=== PATIENT | female | born 1990 | race Caucasian/White ===

== ENCOUNTER 2017-05-04 09:37 | Inpatient (IN) | payer MEDICAID ==
[2017-05-04] MEDS ORDERED: RINGERS SOLUTION,LACTATED 1,000 ML IV PRN (10:47)
[2017-05-04] MEDS ORDERED: RINGERS SOLUTION,LACTATED 300 ML IV ONE (10:47)
[2017-05-04] MEDS ORDERED: MISOPROSTOL 0.1 MG TABLET PV ONE (10:49)
[2017-05-04] MEDS ORDERED: MISOPROSTOL 0.1 MG TABLET ONE ×4 (11:01→20:16)
[2017-05-04 11:11] LABS: ABSOLUTE LYMPHOCYTES (AUTO) 1.7 10^3/uL (0.5-4.7); ABSOLUTE MONOCYTES (AUTO) 0.4 10^3/uL (0.1-1.4); ABSOLUTE NEUT (AUTO) 8.5 10^3/uL (1.7-8.2); BASOPHILS % (AUTO) 0.3 % (0-2); EOSINOPHILS % (AUTO) 0.4 % (0-6); HEMATOCRIT 35.6 % (36.0-47.0); HGB HCT DIFFERENCE 0.4; LYMPHOCYTES % (AUTO) 16.1 % (13-45); MEAN CORPUSCULAR HEMOGLOBIN 29.5 pg (27.0-33.4); MEAN CORPUSCULAR HGB CONC 33.6 g/dL (32.0-36.0); MEAN CORPUSCULAR VOLUME 88 fl (80-97); MONOCYTES % (AUTO) 3.9 % (3-13); RED BLOOD COUNT 4.06 10^6/uL (3.72-5.28); RED CELL DISTRIBUTION WIDTH 14.8 % (11.5-14.0); SEGMENTED NEUTROPHILS % (AUTO) 79.3 % (42-78); WHITE BLOOD COUNT 10.7 10^3/uL (4.0-10.5)
[2017-05-04 11:12] LABS: APPEARANCE,URINE SLIGHTLY-CLOUDY; BILIRUBIN,URINE NEGATIVE (NEGATIVE); GLUCOSE, URINE NEGATIVE (NEGATIVE); KETONES,URINE NEGATIVE (NEGATIVE); LEUKOCYTE ESTERASE,URINE NEGATIVE (NEGATIVE); NITRITE,URINE NEGATIVE (NEGATIVE); PROTEIN,URINE 100 mg/dL (NEGATIVE); URINE SPECIFIC GRAVITY 1.012; UROBILINOGEN,URINE NEGATIVE mg/dL (<2.0)
[2017-05-04 11:28] LABS: URINE BARBITURATES SCREEN NEGATIVE; URINE METHADONE SCREEN NEGATIVE; URINE OPIATES LOW NEGATIVE; URINE PHENCYCLIDINE SCREEN NEGATIVE
[2017-05-04 12:12] LABS: THYROID STIMULATING HORMONE 1.28 uIU/mL (0.47-4.68)
--- NOTE | 2017-05-04 15:20 | L&D Progress Notes ---
PROGRESS NOTES Datetime Report Generated by CPN: 05/04/2017 15:19 PROGRESS NOTE Impression Other: IOL-stable Impression Other: IOL- stable Procedures: Sterile Vag Exam Procedures: Sterile Vag Exam Plan: Continue Present Management; Induction; Cervical Ripening Plan: Continue Present Management; Induction; Cervical Ripening Informed Consent Obtained: Vaginal Delivery; Induction of Labor; Risks, Benefits and Alternatives Discussed Informed Consent Obtained: Vaginal Delivery; Induction of Labor; Risks, Benefits and Alternatives Discussed Vital Signs : Reviewed; Within Normal Limits Vital Signs : Reviewed; Within Normal Limits Comment: S: reports mild cramping but very rare O: VSS, exam as indicated A: IOL for 2w lag in growth and elevated dopplers- stable and progressing with cytotec P: 50mcg cytotec po now, reassess in 4 hours or earlier prn. VAGINAL EXAM Dilatation: 1 Dilatation: fingertip Effacement: 25 Effacement: 25 Station: -3 Station: -3 Contractions: irregular Contractions: none MEMBRANES Membranes: Intact Membranes: Intact FETUS A Monitoring: External US SIGNATURE SIGNATURE: [id number] Assignment: Tori Alexander MD Signature: with User ID: [email or web address] : with User ID: [email or web address]
[2017-05-04] MEDS ORDERED: MISOPROSTOL 0.2 MG TABLET PO ONE (15:49)
[2017-05-05] MEDS ORDERED: DINOPROSTONE 10 MG VAGINAL INSERT.SR ONE (03:09)
[2017-05-05] MEDS ORDERED: OXYTOCIN/NORMAL SALINE 20 UNIT/1,000 ML RTUINJ ONE (16:14)
[2017-05-05] MEDS ORDERED: OXYTOCIN/NORMAL SALINE 1,000 ML IV PRN (16:15)
[2017-05-05] MEDS ORDERED: ACETAMINOPHEN 325 MG TABLET PO ONE (16:36)
[2017-05-05] MEDS ORDERED: ACETAMINOPHEN 325 MG TABLET ONE (16:40)
[2017-05-05] MEDS ORDERED: EPHEDRINE SULFATE INJ 50 MG/1 ML AMPULE ONE (17:27)
[2017-05-05] MEDS ORDERED: BUPIVACAINE HCL 0.25 % INJ/PF (2.5 MG/1 ML) 30 ML VIAL ONE (17:28)
[2017-05-05] MEDS ORDERED: FENTANYL/BUPIVACAINE/NS/PF 0 MCG/0 ML RTUINJ EPI ONE (17:28)
[2017-05-05] MEDS ORDERED: MISOPROSTOL 0.2 MG TABLET ONE (17:30)
[2017-05-05] MEDS ORDERED: LIDOCAINE 1% INJ-PF (10 MG/ML) 30 ML SDV ONE (17:30)
[2017-05-05] MEDS ORDERED: ACETAMINOPHEN WITH CODEINE #3 TABLET PO PRN ×2 (19:52)
[2017-05-05] MEDS ORDERED: BENZOCAINE/MENTHOL AEROSOL SPRAY 56 ML TOP PRN (19:52)
[2017-05-05] MEDS ORDERED: DIPH/PERTUSS(ACELL)/TETANUS VAC/PF 0.5 ML SYR (>=10YO) IM PRN (19:52)
[2017-05-05] MEDS ORDERED: MEASLES,MUMPS&RUBELLA VACC/PF 0.5 ML VIAL SUBCUT PRN (19:52)
[2017-05-05] MEDS ORDERED: ZOLPIDEM TARTRATE 5 MG TABLET PO PRN (19:52)
[2017-05-05] MEDS ORDERED: DIBUCAINE 1% OINTMENT 28 GM TP PRN (19:52)
--- NOTE | 2017-05-05 20:24 | Admission Physical ---
Datetime Report Generated by CPN: 05/05/2017 20:24 CURRENT ADMISSION Hx Assessment: The History has been Reviewed and is Current Chief Complaint: Sent from OB Office for Evaluation and Treatment - Please Specify Chief Complaint Other: 2w lag in growth with elevated SD ratio today(4.3) Indication for Induction: Indicated by Testing Admit Plan: Admit to Unit; Initiate Labor Induction Protocol ALLERGIES Medication Allergies: No Medication Allergies: No Known Allergies (05/04/2017) Medication Allergies: No Known Allergies (09/26/2016) Latex: No Latex Allergies Food Allergies: N/A Environmental Allergies: N/A OBSTETRICAL HISTORY EDC: 05/15/2017 00:00 : 2 Para: 1 Term: 1 : 0 SAB: 0 IAB: 0 Ectopic: 0 Livin Cesareans: 0 VBACs: 0 Multiple Births: 0 Gestational Diabetes: No Rh Sensitization: No Incompetent Cervix: No ILIR: No Infertility: No ART Treatment: No Uterine Anomaly: No IUGR: No Hx Previous C/S: No Macrosomia: No Hx Loss/Stillborn: No PIH: Yes Hx : No Placenta Previa/Abruption: No Depression/PP Depression: No PTL/PROM: No Post Hemorrhage: No Current Procedures: Ultrasound; NST Obstetrical History Comments: 02/28/2014 male 7lb 8 oz hypothyroidism and suspected pre eclampsia with first baby. pt induced. SEE RECORDS Alcohol: No Marijuana : No Cocaine: No Other Illicit Drugs: No Cigarettes: Never Smoker. [id number] MEDICAL HISTORY Diabetes: No Blood Transfusion: No Pulmonary Disease (Asthma, TB): No Breast Disease: No Hypertension: No Shake Maker Surgery: No Heart Disease: No Hosp/Surgery: Yes Autoimmune Disorder: No Anesthetic Complications: No Kidney Disease: No Abnormal Pap Smear: Yes Neuro/Epilepsy: No Psychiatric Disorders: No Other Medical Diseases: No Hepatitis/Liver Disease: No Significant Family History: No Varicosities/Phlebitis: No Trauma/Violence : No Thyroid Dysfunction: No Medical History Comments: childbirth 2013 abnormal pap smear 2012 colposcopy INFECTIOUS HISTORY Gonorrhea: No Genital Herpes: No Chlamydia: No Tuberculosis: No Syphilis: No Hepatitis: No HIV/AIDS Exposure: No Rash or Viral Illness: No HPV: No PHYSICAL EXAM General: Normal HEENT: Normal Neurologic: Normal Thyroid: Deferred Heart: Normal Lungs: Normal Breast: Deferred Back: Normal Abdomen: Normal Genitourinary Exam: Normal Extremities: Normal DTRs: Normal Pelvic Type: Adequate Vital Signs: Reviewed; Within Normal Limits VAGINAL EXAM Dilatation: 1 Dilatation: fingertip Effacement: 25 Effacement: 25 Station: -3 Station: -3 Contraction Comments: irregular Contraction Comments: none MEMBRANES Membranes: Intact Membranes: Intact FETUS A EGA: 38.3 Monitoring: External US FHR- Baseline: 150 Variability: Moderate 6-25bpm Decelerations: None FHR Category: Category I Admit Comment: 26yo at 38w3d A pos, GBS neg, direct admit from clinic with 2w growth lag and elevated dopplers today (SD ratio 4.3). Medical hx significant for obesity, hypothyroidism with prior and elevated 1hr GTT this with a normal 3hr. Also hx of GHTN with prior and abnormal pap smear with neg colpo in the pats. Normal BPs with this . Endorses +FM, denies LOF/bleeding or any problems at this time. Vaginal exam by Dr. Alexander upon admission and cytotec 25mcg pv placed. Plan is to reassess in 4 hr or earlier prn. Pt. asked questions and verbalized understanding. PLANS FOR LABOR AND DELIVERY Labor and Delivery: None Other Pain Management Plans: uncertain of pain medication at this time. will play it by ear Feeding Preference: Formula Benefit of Breast Feed Discussed: Yes Circumcision: N/A INFORMED CONSENT Informed Consent Obtained: Vaginal Delivery; Induction of Labor; Risks, Benefits and Alternatives Discussed Informed Consent Obtained: Vaginal Delivery; Induction of Labor; Risks, Benefits and Alternatives Discussed Assignment: Tori Alexander MD Signature: with User ID: [email or web address] : with User ID: [email or web address]
[2017-05-05] MEDS: IBUPROFEN 800 MG TABLET PO SCH (21:22)
[2017-05-06] MEDS: IBUPROFEN 800 MG TABLET PO SCH ×3 (05:47→21:39)
[2017-05-06 07:22] LABS: HEMATOCRIT 33.7 % (36.0-47.0); HEMOGLOBIN 11.1 g/dL (12.0-15.5); HGB HCT DIFFERENCE -0.4; MEAN CORPUSCULAR HEMOGLOBIN 29.1 pg (27.0-33.4); MEAN CORPUSCULAR VOLUME 88 fl (80-97); RED BLOOD COUNT 3.82 10^6/uL (3.72-5.28); RED CELL DISTRIBUTION WIDTH 14.8 % (11.5-14.0)
[2017-05-06] MEDS: SENNOSIDES/DOCUSATE 8.6-50 MG 1 EACH TABLET PO SCH (10:26)
[2017-05-06] MEDS: DOCUSATE SODIUM 100 MG CAPSULE PO SCH ×2 (10:26→18:03)
[2017-05-06] MEDS: PRENATAL VITAMIN W-O CA NO5/FE FUMARATE/FA CAPSULE PO SCH (10:26)
[2017-05-06] MEDS: FERROUS SULFATE 325 MG TABLET PO SCH ×2 (10:26→18:03)
--- NOTE | 2017-05-06 10:32 | Delivery Summary ---
Del Sum A-C Datetime Report Generated by CPN: 05/06/2017 10:32 DELIVERY PERSONNEL DELIVERY PERSONNEL: [phone] DELIVERY PERSONNEL: [phone] Delivery Doctor:: Gregorio Coreas DO Labor and Delivery Nurse:: Lilian Vergara RNbereavement coordinator Nurse:: Ysabel Garcia RN Nuclear Medicine Specialist/PLASTICS SUPERVISOR: Liat Romo, PATIENT DAY COORDINATOR MATERNAL INFORMATION Delivery Anesthesia: None Medications After Delivery: Pitocin Bolus-Please Comment; Pitocin Drip 20 Units/1000ml NSS Estimated Blood Loss (ml): 250 Maternal Complications: None Provider Comments: of viable female in OA position Loose Nuchal cord x1, easily reduced Placenta delievered spontaneous and intact with 3v cord Fundus firm LABOR SUMMARY EDC: 05/15/2017 00:00 No. Babies in Womb: 1 Attempted: No Labor Anesthesia: None LABOR INFORMATION Reason for Induction: Other Reason for Induction- Other: increased S/D ratio 4.30 2 weeks behind in growth Onset of Labor: 05/05/2017 15:15 Complete Dilatation: 05/05/2017 17:40 Cervical Ripening Agents: Cervidil; Cytotec @ Cervical Ripening Agents: Cytotec @ 0.050 PO/0.025 PV Cervical Ripening Agents: Cytotec @ 50 (Annotations: cytotec 50mcg PO) Cervical Ripening Agents: Cytotec @ Other Ripening Agents: cytotec 25mcg vaginal @ 1118 cytotec 50mcg PO @ 1521 Oxytocin: Induction Group B Beta Strep: negative Antibiotics # of Doses: 0 Steroids Given: None Reason Steroids Not Administered: Not Applicable MEMBRANES Membranes Rupture Method: Spontaneous Rupture of Membranes: 05/05/2017 16:55 Length of Rupture (hr): 0.87 Amniotic Fluid Color: Clear Amniotic Fluid Amount: Small Amniotic Fluid Odor: Normal STAGES OF LABOR Stage 1 hr: 2 Stage 1 min: 25 Stage 2 hr: 0 Stage 2 min: 7 Stage 3 hr: 0 Stage 3 min: 2 Total Time in Labor hr: 2 Total Time in Labor min: 34 VAGINAL DELIVERY Episiotomy: None Laceration Extension: First Degree Laceration Type: Perineal; Periurethral Laceration Repair: Yes Laceration Repair Note: repaired with 2-0 and 3-0 chromic in usual fashion with good hemostasis Sponge Count Correct: N/A Sharps Count Correct: N/A CSECTION DELIVERY Primary Indication: N/A Secondary Indication: N/A CSection Incidence: N/A Labor: N/A Elective: N/A CSection Incision: N/A BABY A INFORMATION Infant Delivery Date/Time: 05/05/2017 17:47 Method of Delivery: Vaginal Born in Route : No : N/A Forceps: N/A Forceps: N/A Vacuum Extraction: N/A Vacuum Extraction: N/A Shoulder Dystocia : No PRESENTATION/POSITION BABY A Presentation: Cephalic Presentation: Cephalic Cephalic Presentation: Vertex Vertex Position: Left Occipital Anterior Breech Presentation: N/A PLACENTA INFORMATION BABY A Placenta Delivery Time : 05/05/2017 17:49 Placenta Delivery Time : 05/05/2017 17:49 Placenta Method of Delivery: Spontaneous Placenta Status: Delivered SCORES BABY A Heart Rate 1 min: >100 bpm Resp Effort 1 min: Slow, Irregular Reflex Irritability 1 min: Cough or Sneeze or Pulls Away Muscle Tone 1 min: Active Motion Color 1 min: Blue/Pale Resuscitation Effort 1 min: Tactile Stimulation SCORE 1 MIN: 7 Heart Rate 5 min: >100 bpm Resp Effort 5 min: Good Cry Reflex Irritability 5 min: Cough or Sneeze or Pulls Away Muscle Tone 5 min: Active Motion Color 5 min: Body [place], Extremities Blue Resuscitation Effort 5 min: Tactile Stimulation SCORE 5 MIN: 9 INFANT INFORMATION BABY A Gestational Age at Delivery: 38.4 Gestational Age at Delivery: 38.4 Gestational Status: Early Term- 37- 38.6 Weeks Infant Outcome : Liveborn Outcome : Liveborn Condition : Stable Condition : Stable Sex: Female IDENTIFICATION BABY A Infant Verification Date/Time: 05/05/2017 17:58 ID Band Number: [id number] Mother's Name Verified: Yes Infant RN Verifying Infant: M. Benjamin, RN Additional Verifying Personnel: D. Kamila WEIGHT/LENGTH BABY A Infant Birthweight (gm): 2430 Weight (lb): 5 Weight (oz): 6 Length (in): 19.00 Length (cm): 48.26 CORD INFORMATION BABY A No. Cord Vessels: 3 Nuchal Cord : Around Neck x1, Loose Cord Blood Taken: Yes-For Storage (Mom's Blood type +) Infant Suction: Mouth; Nose ASSESSMENT BABY A Infant Complications: None Physical Findings at Delivery: Within Normal Limits Infant Respirations: Appears Normal Skin to Skin: Yes Skin to Skin Time (min): 60 Body Shop Technician/ALS Called : No Care By: Bernardo Garcia RN Transferred To: Remains with Mother BABY B INFORMATION : N/A SIGNATURES Signature: with User ID: Janet
--- NOTE | 2017-05-06 10:57 | PDOC PROGRESS REPORT ---
Subjective-OB Subjective: Post Delivery Day:1 26 year old. Denies any needs at this time, doing well voiding without difficulty, pain well controlled, lochia is stable. Physical Exam (OB) Vital Signs: Temp Pulse Resp BP Pulse Ox 98.3 F 63 16 103/56 L 99 05/06/17 08:42 05/06/17 08:42 05/06/17 08:42 05/06/17 08:42 05/06/17 08:42 Intake & Output 05/05/17 05/06/17 05/07/17 06:59 06:59 06:59 Weight 96.5 kg - Lochia Lochia Amount: Scant < 10 ml Lochia Color: Rubra/Red - Abdomen Description: Tender, Soft Hernia Present: No Fundal Description: Firm, Midline Fundal Height: u/u - u/2 Objective-Diagnostic Laboratory: 05/06/17 07:12 05/06/17 07:12 WBC 14.0 H RBC 3.82 Hgb 11.1 L Hct 33.7 L MCV 88 MCH 29.1 MCHC 33.0 RDW 14.8 H Plt Count 178 Assessment and Plan(PN) - Assessment and Plan (1) Vaginal delivery Is this a current diagnosis for this admission?: YesPlan: routine pp care d/c home tomorrow - Time Spent with Patient Time with patient: Less than 15 minutes Critical Time spent with patient: Less than 15 minutes Medications reviewed and adjusted accordingly: Yes - Disposition Anticipated Discharge: Home Within: within 48 hours
[2017-05-07] MEDS: IBUPROFEN 800 MG TABLET PO SCH (06:09)
--- NOTE | 2017-05-07 09:39 | PDOC DISCHARGE SUMMARY ---
Final Diagnosis Discharge Date: 05/07/17 - Final Diagnosis (1) Vaginal delivery Is this a current diagnosis for this admission?: Yes Discharge Data - Discharge Medication Home Medications: Aspirin [Aspirin 81 mg Chewable Tablet] 1 tab PO DAILY 05/04/17 Pnv95/Ferrous Fumarate/FA [ Formula Tablet] 1 each PO DAILY 05/04/17 Docusate Sodium [Colace 100 mg Capsule] 100 mg PO BID #60 capsule 05/07/17 Ibuprofen [Motrin 800 mg Tablet] 800 mg PO Q8 #60 tablet 05/07/17 Gestational Age: 38.4 Reason(s) for Admission: Onset of Labor Procedures: NST Intrapartum Procedure(s): Spontaneous Vaginal Delivery Complication(s): Laceration-Perineal, Laceration-Periurethral Laceration-Degree: 1st - Data Baby 1 Female at 1 minute: 7 at 5 minutes: 9 Weight: 2430 kg Home with Mother: Yes Complications: No - Diagnosis Test Laboratory: Temp Pulse Resp BP Pulse Ox 97.7 F 66 14 118/75 99 05/07/17 08:15 05/07/17 08:15 05/07/17 08:15 05/07/17 08:15 05/07/17 08:15 05/04/17 05/04/17 05/06/17 09:50 10:20 07:12 RBC 4.06 3.82 Hgb 12.0 11.1 L Hct 35.6 L 33.7 L Urine Opiates Screen NEGATIVE - Discharge information/Instructions Discharge Activity: Activity As Tolerated, No Lifting Over 10 Pounds, Pelvic Rest, No tub bath Discharge Diet: Regular Disposition: HOME, SELF-CARE Follow up with: [facility] in: 4, Weeks
[2017-05-07 09:47] VITALS: BP 111/54
[2017-05-07] MEDS: SENNOSIDES/DOCUSATE 8.6-50 MG 1 EACH TABLET PO SCH (10:17)
[2017-05-07] MEDS: DOCUSATE SODIUM 100 MG CAPSULE PO SCH (10:17)
[2017-05-07] MEDS: FERROUS SULFATE 325 MG TABLET PO SCH (10:17)
[2017-05-07] MEDS: PRENATAL VITAMIN W-O CA NO5/FE FUMARATE/FA CAPSULE PO SCH (10:18)
== END 2017-05-07 11:08 | disposition home or self-care (01) | DRG 775 ==
LOC: LC 09:37 → LR 09:50 → 2S 05-05 20:23
PROVIDERS: ADMIT Obstetrics & Gynecology; ATTEND Obstetrics & Gynecology
PROC: 4A1HXCZ Monitoring of Products of Conception, Cardiac Rate, External Approach (ICD-10-PCS; 2017-05-04)
PROC: 10E0XZZ Delivery of Products of Conception, External Approach (ICD-10-PCS; principal; 2017-05-05)
PROC: 0UQMXZZ Repair Vulva, External Approach (ICD-10-PCS; 2017-05-05)
PROC: 0HQ9XZZ Repair Perineum Skin, External Approach (ICD-10-PCS; 2017-05-05)
DX: O69.81X0 Labor and delivery complicated by cord around neck, without compression, not applicable or unspecified (principal); Z68.41 Body mass index [BMI] 40.0-44.9, adult; O70.0 First degree perineal laceration during delivery; O71.82 Other specified trauma to perineum and vulva; E66.9 Obesity, unspecified; O99.214 Obesity complicating childbirth; Z3A.38 38 weeks gestation of pregnancy; Z37.0 Single live birth
CPT/HCPCS: 36415; 80307; 81005; 84439; 84443; 85025; 85027; 86592; 86850; 86900; 86901; 88307; J2590; J3490